=== PATIENT | female | born 1990 | race Caucasian/White ===

== ENCOUNTER 2016-10-01 08:38 | Inpatient (IN) | payer OTHER ==
[~2016-10-01] VITALS: Ht 167.6 cm; Wt 84.4 kg
[~2016-10-01 08:38] MED LIST: HYDR1TAB69 PO; IBUP-1152 PO; PNV1TABL57 PO; ZOL50 PO
[2016-10-01] MEDS ORDERED: Lactated Ringer's 1,000 ML IV PRN (09:12)
[2016-10-01] MEDS ORDERED: Ondansetron 2 mg/mL 2 mL Inj IVPUSH PRN ×2 (09:15→16:35)
[2016-10-01] MEDS ORDERED: Oxytocin 30 Units/500 mL LR 30 UNITS in IV Premix 1 EACH IV PRN ×2 (09:15→17:05)
[2016-10-01] MEDS ORDERED: Oxytocin 10 Unit/mL Inj IM PRN ×2 (09:15→17:05)
[2016-10-01] MEDS ORDERED: Sodium Chloride LOK Flush 10 mL Syringe IVFLUSH PRN ×2 (09:15→17:05)
[2016-10-01] MEDS ORDERED: Methylergonovine 0.2 mg/mL Inj IM PRN ×2 (09:15→17:05)
[2016-10-01] MEDS ORDERED: fentaNYL-PF 50 mCg/mL 2 mL Inj IVPUSH PRN ×2 (09:15→16:35)
[2016-10-01] MEDS ORDERED: Hemorrhage Kit, Post Partum XX ONE ×2 (09:15→17:05)
[2016-10-01] MEDS ORDERED: Carboprost 250 mCg/mL Inj IM PRN ×2 (09:15→17:05)
[2016-10-01] MEDS: Lactated Ringer's 1,000 ML IV SCH ×3 (10:10→15:45)
[2016-10-01 10:15] LABS: Mean Corpuscular Hemoglobin 31.7 pg (27.0-35.0)
[2016-10-01] MEDS ORDERED: Morphine PF 1 mg/mL 10 mL Inj ONE (13:21)
[2016-10-01] MEDS ORDERED: fentaNYL-PF 50 mCg/mL 2 mL Inj ONE (13:21)
[2016-10-01] MEDS ORDERED: Oxytocin 10 Unit/mL Inj ONE (13:21)
[2016-10-01] MEDS ORDERED: CeFAZolin 2 Gm/50 mL D5W Duplex Bag IV ONE (14:39)
[2016-10-01] MEDS ORDERED: Sodium Citrate-Citric Acid 15 mL Solution ONE (14:39)
--- NOTE | 2016-10-01 16:32 | PCM.HPANE ---
Patient Data Surgeon Admitting Provider:Lyle Wheatley MD Attending Provider:Lyle Wheatley MD Primary Care Physician:Edmundo Ashraf MD Other Provider:Kerwin Huertas Anesthesia Reason for Visit Induction INDUCTION Ht/WT & BMI Body Mass Index Allergies Coded Allergies: No Known Allergies (Verified Allergy, Unknown, 10/01/16) Diabetes History Hx Diabetes?: No Medications Reported Medications Hydrocod/APAP-Expunged, Do Not Renew! (VICODIN 5/500-Expunged Drug, Do Not Renew )1 Each Tablet1-2 Each PO Q6 PRN #15 10/09/11 IBUPROFEN-Expunged Drug, Do Not Renew! 800 Mg [id number] Mg PO TID PRN #30 10/09/11 PNV CMB#95/FERROUS FUMARATE/FA-Expunged Drug, (-Expunged Drug, Do Not Renew!)1 Each Tablet1 Each PO DAILY 10/08/11 Sertraline-Expunged Drug, Choose New Med! 50 Mg Tab50 Mg PO DAILY 02/02/10 History Cardiovascular History: Denies:: Congestive Heart Failure Hypertension Respiratory History: Denies:: Tuberculosis Hx Surgeries?: No Hx Diabetes: No Hx Alcohol Use: YesHx Substance Use: No Smoking Status: Former Smoker Stop/Bang Risk Assessment Category Category 1A: Patient has history of documented sleep apnea, and HAS NOT received any narcotic, sedative or anesthesia administration during this stay. Category 1B: Patient has history of documented sleep apnea, and HAS received any narcotic , sedative or anesthesia administration during this stay Category 2: Patient has SUSPECTED Obstructive Sleep Apnea, and HAS received any narcotic , sedative or anesthesia administration during this stay. Category 3: Patient has SUSPECTED Obstructive Sleep Apnea and HAS NOT received narcotic, sedative or anesthesia administration during this stay. Category 4: Outpatient in Procedural Areas with known sleep apnea or who screen positive for High Risk via the STOP/BANG questionnaire. Exam Exam General Appearance: Alert, Oriented X3, Cooperative, Mild Distress HEENT/AIRWAY: MP 1 Lungs: Normal Air Movement Heart: Regular Rate/Rhythm Meds/Labs/Diagnostics Admission Meds Current Medications Lactated Ringer's (Lr) 1,000 ml @ 125 mls/hr Q8H IV Last administered on t 15:45; Start 10/01/16 at 09:12 Dinoprostone (Cervidil Vaginal Insert) 10 mg ONCE ONCE VAGINAL Last administered on 10/01/16 11:13; Start 10/01/16 at 09:15; Stop 10/01/16 at 09:21; Status DC Citric Acid/ Sodium Citrate (Bicitra) 30 ml STK-MED ONCE .ROUTE Last administered on 10/01/16 15:53; Start 10/01/16 at 14:39; Stop 10/01/16 at 14:41; Status DC Labs Test 10/01/16 10:00 10/01/16 11:25 White Blood Count 10.6th/mm3 (3.8-10.1) Red Blood Count 4.58mil/mm3 (3.90-5.20) Hemoglobin 14.5g/dL (12.0-15.6) Hematocrit 41.7% (35.0-46.0) Mean Corpuscular Volume 91.0fL (81-100) Mean Corpuscular Hemoglobin 31.7pg (27.0-35.0) Mean Corpuscular Hemoglobin Concent 34.8% (32.0-37.0) Red Cell Distribution Width 12.1% (12.3-15.4) Platelet Count 131bil/L (150-400) Urine Opiates Screen Negative Urine Methadone Screen Negative Urine Barbiturates Screen Negative Urine Amphetamines Screen Negative Urine Benzodiazepines Screen Negative Urine Cocaine Metabolite Screen Negative Urine Cannabinoids Screen Negative Plan Impression Patient chart reviewed, patient interviewed and anesthestic plan with risks, benefits, and alternatives discussed, and informed consent obtained. ASA Physical Status: ASA2 Mod Systemic Disease Anesthetic Plan: SAB Bene/Risks/Altern/Consents: Yes HP Complete Prior to Induction: Yes Orquidea Harris DO Oct 01, 2016 16:32
[2016-10-01] MEDS ORDERED: EPHEDrine Sulfate 50 mg/mL Inj IVPUSH PRN (16:35)
[2016-10-01] MEDS ORDERED: Atropine 0.4 mg/mL Inj IV PRN (16:35)
[2016-10-01] MEDS ORDERED: LANOlin HPA 7 Gm Ointment TOPICAL PRN (17:05)
[2016-10-01] MEDS ORDERED: hydrOXYzine Pamoate 25 mg Capsule PO PRN (17:05)
[2016-10-01] MEDS ORDERED: oxyCODONE-Acetamin 5-325 mg Tablet PO PRN (17:05)
[2016-10-01] MEDS ORDERED: Acetaminophen IV 1,000 MG in IV Premix 1 EACH IV PRN (17:05)
[2016-10-01] MEDS ORDERED: HYDROcodone-APAP 5-325 mg Tablet PO PRN (17:05)
[2016-10-01] MEDS ORDERED: Lactated Ringer's 1,000 ML IV SCH (17:05)
--- NOTE | 2016-10-01 21:42 | NUR ---
MMR vaccine Pt offered MMR vaccine as she is not immune to rubella. Pt declines. Reports will speak with her primary provider when in the outpatient setting.
[2016-10-02 06:28] LABS: Mean Corpuscular Hemoglobin 31.2 pg (27.0-35.0); Mean Corpuscular Volume 91.8 fL (81-100)
--- NOTE | 2016-10-02 11:22 | PCM.DIOB ---
Obstetrical Disch Instruction Date of Service: Oct 02, 2016 Dates of Hospitalization Date of Hospital Admission Oct 01, 2016 at 08:38 Providers Admitting Physician: Lyle Wheatley MD Primary Care Physician: Edmundo Ashraf MD Attending Physician: Lyle Wheatley MD Discharge Diagnosis Problems: (1) Status post primary low transverse section Status: Acute ICD Code: Z98.89 Diet Discharge Diet: No restrictions Activity Discharge Activity-General: Pelvic Rest for 6 weeks, Balance rest and activity , Activity as pain allows, Activity as energy allows, No lifting >10 pounds for 4-6 weeks Dressing and Incisional Care Dressing Care: Other (Will remove cristina in clinic on Tuesday or Tuesday of next week. ) Hygiene: May shower Follow Up Plan Follow-up Provider (F9): Lyle Wheatley MD Follow-up appointment: Weeks (2) Call your provider for: Fever or Chills, Heavy vaginal bleeding, Heavy bleeding , Excessive constipation, Red painful breasts Lyle Wheatley MD Oct 02, 2016 11:22
[2016-10-02] MEDS ORDERED: IBUP800T28 PO (11:25)
[2016-10-02] MEDS ORDERED: OXYC1TAB24 PO (11:25)
[2016-10-02] MEDS ORDERED: DOCU-41 PO (11:25)
--- NOTE | 2016-10-02 11:29 | PCM.DC.OB ---
Obstetrical Discharge Summary Date of Service Oct 02, 2016 Date of hospital admission Oct 01, 2016 at 08:38 Date of Discharge: Oct 02, 2016 Providers Admitting Physician: Lyle Guerrero MD Primary Care Physician: Edmundo Ashraf MD Attending Physician: Lyle Guerrero MD Problems: (1) Status post primary low transverse section Status: Acute ICD Code: Z98.89 Consultations None Invasive procedures Primary LTCS Date of Procedure: Oct 01, 2016 Hospital Course: Patient was just starting her induction for oligo when she then developed variable and late decels. This resulted in going to . SGA baby noted with small placenta. was uncomplicated. Recovered well and wanted to leave early to see her baby down in [place]. Docusate Sodium (Colace) 100 Mg Capsule 100 MG PO BID PRN PRN For Constipation Prescribed by: LYLE GUERRERO MD Hydrocod/APAP-Expunged, Do Not Renew! (VICODIN 5/500-Expunged Drug, Do Not Renew ) 1 Each Tablet 1-2 EACH PO Q6 PRN PRN (Reported) IBUPROFEN-Expunged Drug, Do Not Renew! (IBUPROFEN-Expunged Drug, Do Not Renew!) 800 Mg Tablet 800 MG PO TID PRN PRN (Reported) Ibuprofen (Ibuprofen) 800 Mg Tablet 800 MG PO Q6H PRN PRN For Pain Prescribed by: LYLE GUERRERO MD PNV CMB#95/FERROUS FUMARATE/FA-Expunged Drug, (-Expunged Drug, Do Not Renew!) 1 Each Tablet 1 EACH PO DAILY (Reported) Sertraline-Expunged Drug, Choose New Med! (Sertraline-Expunged Drug, Choose New Med!) 50 Mg Tab 50 MG PO DAILY (Reported) oxyCODONE-Acetaminophen 5-325 mg (oxyCODONE-Acetaminophen 5-325 mg) 1 Each Tablet 1-2 TAB PO Q4H PRN PRN For Pain Prescribed by: LYLE GUERRERO MD Follow-up plan See me in two weeks. Discharge Diet: No restrictions Discharge Activity-General: Pelvic Rest for 6 weeks, Be up and about, Balance rest and activity, Activity as pain allows, No lifting >15 pounds for 2 weeks copies to: Josee Guerrero MD, David B MD Oct 02, 2016 11:29
--- NOTE | 2016-10-02 11:33 | NUR ---
Social work Family brief note: D/A: Pt is a 26 year old who recently underwent delivery of her third child on 10/01/16. Pt's child was transferred to [facility] and pt will now discharge to be with her child. BLISTER RUST ERADICATOR consult ordered due to previous reported history of a suicide attempt. BLISTER RUST ERADICATOR reviewed records to find pt was seen in the ED for a suicidal gesture while intoxicated with stated intent to prevent her from leaving her. Pt was seen by ED MD, evaluated and cleared for outpatient management due to consideration that she was not actively suicidal or imminently dangerous. BLISTER RUST ERADICATOR spoke with Amelie MOORE who reports no active concerns and pt has been completely appropriate with care. RN declined need to consult due to updated information from review of records and lack of current symptoms or concerns. P: BLISTER RUST ERADICATOR order cancelled after review of records. MARLENI Beard
[2016-10-02 11:43] VITALS: BP 114/62; PULSE 81; RESP 16
--- NOTE | 2016-10-03 07:57 | PCM.ANEP2 ---
Post Anesthesia Evaluation ASA/CMS Post Anesthesia VS in Patient's Normal Range?: Yes Resp Stable; Airway Patent?: Yes CV Function & Hydration Stable: Yes Mental Status Recovered?: Yes Pain control Satisfactory?: Yes N/V Control Satisfactory?: Yes Orquidea Harris DO Oct 03, 2016 07:57
--- NOTE | 2016-10-03 07:57 | PCM.ANEP1 ---
Post Anesthesia Phase 1 PACU Phase 1 Assessment Anesthetic Administered: SAB Level of Alertness: Awake, talking CARPENTER's with Equal Strength: Yes Pain: No Pain Scale Score: 3 Nausea or Vomiting: No Oxygen Delivery: Room Air Lungs: Normal Air Movement Orquidea Harris DO Oct 03, 2016 07:57
--- NOTE | 2016-10-04 16:43 | PATH ---
SURGICAL PATHOLOGY Attending Physician:Lyle Wheatley MD CASE STATUS: Signed Out PATIENT NAME: PETER VERGARA PID: [id number] : 1990 DATE COLLECTED:10/01/2016 00:00 SPECIMEN: Placenta CLINICAL HISTORY: INTOLERANCE TO LABOR, OLIGOHYDRAMNIOS, ALSO SMALL FOR GESTATIONAL AGE 3). PLACENTA FINAL DIAGNOSIS: 1.PLACENTA: GARCIA PLACENTA WITH MULTIPLE INFARCTS AND A HEMATOMA. SMALL PLACENTAL SIZE (281 GRAMS, LESS THAN 10TH PERCENTILE FOR 37 WEEKS GESTATION). ICD10 CODE O43.81 GROSS DESCRIPTION: The specimen is received in formalin, labeled with the patient's name and consists of an intact placenta and includes placental disc (281 g, 12.8 x 10.8 x 3.2 cm), stump of umbilical cord (length-1.2 cm, diameter-0.8 x 0.3 cm) and membranes. The membranes are ruptured at the free edge of the placenta and are translucent. Approximately 80% of the membranes are attached at the edge of the maternal surface. The umbilical cord is attached 4.5 cm from the edge of the placenta and contains 3 vessels. The surface is bosselated. Approximately 50% of the vessels are raised and dilated. The maternal surface is dark maroon with normal cotyledon formation. The placental disc is spongy and contains the following: multiple cystic cavities (0.8 x 0.5 x 0.5 cm-1.7 x 0.8 x 0.4 cm) containing yellow-green solid firm and gelatinous semitranslucent material, multiple yellow orange rubbery fibrous areas (0.5 x 0.5 x 0.3 cm-1.5 x 1.5 x 0.1 cm) and a hemorrhagic area (1.3 x 0.5 x 0.5 cm). Section code: (A, B) edge of placenta with membranes; (C) umbilical cord; (D-E, F-G, H, I) placenta, 4 full thickness sections; (J, K) placental disc, sales and marketing representative. 10/02/16 JM MICRO DESCRIPTION: See diagnosis. ICD-9 CODES: CPT CODES: 1: 91135 Electronically Signed Out Yesica Box MD [facility] [address] [place] [address], [place] [address] Technical component performed at [facility], [address], [place], [address]
--- NOTE | 2016-10-07 18:13 | PCM.OBCSEC ---
Delivery Date of Service Oct 01, 2016 Pre Procedure Diagnosis 1. Olighydramnios 2. intolerance to labor 3. Small for gestational age Post Procedure Diagnosis Same as above Procedure Primary LTCS Procedure: Unplanned Emergent Medical Sales Associate/Pipe Chipper Surgeon: Lyle Wheatley MD Assistants: Tu Mcarthur Indication for Procedure intolerance to early labor/induction Induction: Induction of labor Findings Small for gestational age...symmetric Obstetrical Findings: Eagle (Female) Presentation (Vertex) Placenta (Abnormal) Complications None Analgesia/Medications Spinal Procedure Details Patient was consented for after multiple variable decels and a few late decels noted. Induction had been stopped. Patient was given spinal anesthesia and a decel was noted. For this reason, we quickly prepped and did a timeout while doing the prep. Anesthesia adequate and two grams of ancef given IV prior. Incision made and carried down to fascia in the usual fashion with the knife. Fascia incised and carried laterally with the shrestha scissors. Fascia elevated superiorly and inferiorly with clamps. Underlying muscle dissected off with shrestha scissors. Muscle entered bluntly with my fingers along with the peritoneal layer. This was stretched manually to make room for the surgery. Bladder flap created using the hannah. Entry into the uterus was performed with the knife but final entry was with my fingers. Bandage scissors used to make incision wider. delivered without complication. Noted to be small and cord gases sent. Meconium had been noted...light to moderate. Infant cried and was vigorous. Placenta removed manually after cord clamped and cut. Infant handed to waiting nurses. Uterus exteriorized and cleared of membranes. Uterine incision closed with 1-0 chromic. No second layer necessary. Pelvis irrigated. Uterus returned to the pelvis. Interceed placed. Muscle closed in running fashion with 2-0 chromic. Fascia closed with 0-vicryl. Sub-Q irrigated. Skin closed with cristina. Standard dressing applied. Counts correct x 3. Patient in excellent condition following surgery. No other complications. EBL was 600 ml. Fluids in was 600 ml. Urine out 100 ml. Specimen Specimens: Placenta, Cord gas/pH Input/Output Intake, IV Amount: 600 Catheters: Urethral 2 Way [place] Blood Loss & Administration Estimated Blood Loss: 600 Blood Administration during mckeon: No Post Operative Plan Routine care Post delivery Condition: Mom stable VTE Prophylaxis: SCDs copies to: Josee Wheatley MD, David B MD Oct 07, 2016 18:13
== END 2016-10-02 13:22 | disposition home or self-care (01) | DRG 765 ==
LOC: FBC 08:38
PROVIDERS: ADMIT Family Medicine; ATTEND Family Medicine
PROC: 3E0P7GC Introduction of Other Therapeutic Substance into Female Reproductive, Via Natural or Artificial Opening (ICD-10-PCS; 2016-10-01)
PROC: 10D00Z1 Extraction of Products of Conception, Low, Open Approach (ICD-10-PCS; principal; 2016-10-01 15:58)
DX: O41.03X0 Oligohydramnios, third trimester, not applicable or unspecified (principal); O36.5930 Maternal care for other known or suspected poor fetal growth, third trimester, not applicable or unspecified; O76 Abnormality in fetal heart rate and rhythm complicating labor and delivery; Z3A.37 37 weeks gestation of pregnancy; Z37.0 Single live birth